=== PATIENT | male | born 1960 ===

== ENCOUNTER 2020-11-14 20:24 | Emergency (ER) | payer SELFPAY ==
[~2020-11-14] VITALS: Ht 167.6 cm; Wt 81.7 kg
[2020-11-14] MEDS ORDERED: HYDROCODON-ACE1 EA10 PO (22:39)
== END 2020-11-14 22:59 | disposition home or self-care (01) ==
LOC: ED 20:24
DX: S52.511A Displaced fracture of right radial styloid process, initial encounter for closed fracture (principal); X50.9XXA Other and unspecified overexertion or strenuous movements or postures, initial encounter; I10 Essential (primary) hypertension; F17.200 Nicotine dependence, unspecified, uncomplicated
CPT/HCPCS: 29125; 73110; 99283-25